=== PATIENT | female | born 1990 | race African-American/Black ===

== ENCOUNTER 2018-02-21 06:28 | Emergency (ER) | payer MEDICAID ==
[~2018-02-21] VITALS: Ht 157.5 cm; Wt 50.0 kg
[2018-02-21] MEDS ORDERED: IBUPROFEN 600MG TABLET PO ONE (07:30)
[2018-02-21 07:46] LABS: CLARITY URINE TURBID (CLEAR); COLOR URINE YELLOW (YELLOW); KETONES URINE NEGATIVE (NEGATIVE); LEUKOCYTE ESTERASE URINE NEGATIVE (NEGATIVE); NITRITE URINE NEGATIVE (NEGATIVE); OCCULT BLOOD URINE NEGATIVE (NEGATIVE); PROTEIN URINE NEGATIVE (NEGATIVE); SPECIFIC GRAVITY URINE 1.015 (1.005-1.030); UROBILINOGEN URINE 0.2 E.U./dL (0.2-1.0)
[2018-02-21] MEDS ORDERED: NITROFURANTOIN 100MG M/M CAPSULE PO ONE (08:30)
[2018-02-21 08:54] VITALS: BP 110/71
== END 2018-02-21 08:56 | disposition home or self-care (01) ==
LOC: ER 06:28
DX: N30.90 Cystitis, unspecified without hematuria (principal)
CPT/HCPCS: 81003; 81025; 99283

== ENCOUNTER 2018-04-24 16:04 | Emergency (ER) | payer MEDICAID ==
[~2018-04-24] VITALS: Ht 154.9 cm; Wt 58.0 kg
[2018-04-24] MEDS ORDERED: IBUPROFEN 600MG TABLET PO STA (19:58)
[2018-04-24 20:55] VITALS: BP 151/99
[2018-04-24 21:25] LABS: CLARITY URINE CLEAR (CLEAR); COLOR URINE YELLOW (YELLOW); KETONES URINE NEGATIVE (NEGATIVE); LEUKOCYTE ESTERASE URINE NEGATIVE (NEGATIVE); NITRITE URINE NEGATIVE (NEGATIVE); OCCULT BLOOD URINE NEGATIVE (NEGATIVE); PROTEIN URINE NEGATIVE (NEGATIVE); SPECIFIC GRAVITY URINE 1.016 (1.005-1.030)
== END 2018-04-24 23:14 | disposition left against medical advice (07) ==
LOC: ER 16:51
DX: R10.2 Pelvic and perineal pain (principal); R03.0 Elevated blood-pressure reading, without diagnosis of hypertension
CPT/HCPCS: 74176; 81003; 81025; 99285